=== PATIENT | male | born 1980 | race African-American/Black ===

== ENCOUNTER 2017-01-09 08:18 | Emergency (ER) | payer OTHER ==
[2017-01-09] MEDS ORDERED: TETANUS/DIPHTHERIA TOXOID ADULT 0.5 ML VIAL IM ONE (09:00)
[2017-01-09] MEDS ORDERED: IBUPROFEN 600 MG TAB PO ONE (09:00)
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
[2017-01-09] MEDS ORDERED: AUGM875T3 PO (10:14)
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
[2017-01-09 10:33] VITALS: RESP 16
== END 2017-01-09 10:47 | disposition home or self-care (01) ==
LOC: NEPD 08:18
DX: S61.250A Open bite of right index finger without damage to nail, initial encounter (principal); W50.3XXA Accidental bite by another person, initial encounter; Z23 Encounter for immunization; Z72.0 Tobacco use
CPT/HCPCS: 73130; 90471; 90714